=== PATIENT | male | born 1985 | race Caucasian/White ===

== ENCOUNTER 2017-04-20 20:42 | Emergency (ER) | payer OTHER ==
[2017-04-20 20:46] VITALS: BP 165/90; PULSE 77; RESP 18; TEMP 98.8
[2017-04-20] MEDS ORDERED: BUPIVACAINE (PF) 0.5% 30 ML VIAL MISCELLANE STA (21:13)
--- NOTE | 2017-04-20 21:20 | ED ---
ENT HPI - General Chief complaint: Dental/Oral Stated complaint: Dental Pain Time Seen by Provider: 04/20/17 20:50 Source: patient, RN notes reviewed Mode of arrival: ambulatory Limitations: no limitations - History of Present Illness Initial comments: Patient is a 31-year-old male presents to the emergency room for evaluation of dental pain. Patient states that he has been having pain in his right lower tooth for the past 24 hours. Patient states he thinks it is his wisdom tooth. Patient denies any facial swelling, fevers or chills. Patient states the pain radiates into his right ear. Patient denies trouble swallowing or swelling of the throat. Patient states he's been taking ibuprofen with no relief of symptoms. Patient states he is not be able to get an appointment with his dentist yet. Patient requesting dental block. - Related Data Previous Rx's Medication Instructions Recorded Acetaminophen with Codeine 1 tab PO Q4H PRN #12 tab 04/20/17 [Tylenol w/codeine #3] Clindamycin [Cleocin] 300 mg PO Q6H 10 Days 04/20/17 Allergies Allergy/AdvReac Type Severity Reaction Status Date / Time amoxicillin Allergy Rash/Hives Verified 04/20/17 20:46 Review of Systems ROS Statement: Those systems with pertinent positive or pertinent negative responses have been documented in the HPI. ROS Other: All systems not noted in ROS Statement are negative. Past Medical History Past Medical History: No Reported History History of Any Multi-Drug Resistant Organisms: None Reported Past Surgical History: Orthopedic Surgery Past Psychological History: No Psychological Hx Reported Smoking Status: Never smoker Past Alcohol Use History: None Reported Past Drug Use History: None Reported General Exam - General Exam Comments Initial Comments: laying in exam room, no acute distress. Limitations: no limitations General appearance: alert, in no apparent distress Head exam: Present: atraumatic, normocephalic, normal inspection Eye exam: Present: normal appearance Expanded Mouth exam: Present: normal external inspection Teeth exam: Present: dental caries (multiple), dental tenderness # (eroded tooth #32) Throat exam: normal inspection Neck exam: Present: normal inspection Respiratory exam: Absent: respiratory distress Extremities exam: Present: normal inspection Back exam: Present: normal inspection Neurological exam: Present: alert, oriented X3, CN II-XII intact, normal gait Psychiatric exam: Present: normal affect, normal mood Skin exam: Present: warm, dry, intact, normal color. Absent: rash Course Vital Signs 04/20/17 20:43 Temperature 98.8 F Pulse Rate 77 Respiratory 18 Rate Blood Pressure 165/90 O2 Sat by Pulse 98 Oximetry Procedures - Nerve Block Consent Obtained: verbal consent Local Anesthetic Used: Marcaine 0.5% Amount of anesthesia used: 2 Side: right Intraoral Nerve Block: inferior alveolar Procedure Successful: Yes Complications: none Patient Tolerated Procedure: well, no complications Medical Decision Making - Medical Decision Making Patient is a 31-year-old male presents to the emergency room for evaluation of dental pain. Patient requesting dental block. Right inferior alveolar dental block successful. Patient placed on antibiotics and pain medications and advised follow up with dentist. Patient states he understands everything that was discussed with him. Return parameters discussed. Disposition Clinical Impression: Pain, dental Disposition: HOME SELF-CARE Condition: Good Instructions: Toothache (ED) Additional Instructions: Please follow up with a dentist. If you do not have a dentist, you may contact [facility]. Phone number is [phone] for existing clients. For new clients you may call [phone]. Another option is you have is the [facility]. Phone number is [phone]. Medications as directed. [place] gargles. Cold fluids can sometimes help with pain as well. Return to the Emergency Room for any worsening or changing symptoms. Use cold compresses to the outside of the face. Prescriptions: Acetaminophen with Codeine [Tylenol w/codeine #3] 1 tab PO Q4H PRN #12 tab PRN Reason: Pain Clindamycin [Cleocin] 300 mg PO Q6H 10 Days Referrals: Jeison Lynn MD [Primary Care Provider] - 1-2 days Time of Disposition: 21:16
== END 2017-04-20 21:31 | disposition home or self-care (01) ==
LOC: EC 20:42
DX: K08.89 Other specified disorders of teeth and supporting structures (principal); K02.9 Dental caries, unspecified; H92.01 Otalgia, right ear; Z88.0 Allergy status to penicillin
CPT/HCPCS: 64400; 99282

== ENCOUNTER → 2022-04-22 | Outpatient (CLI) | payer OTHER | END | disposition home or self-care (01) | LOC: RADXRMAIN 14:41 | PROVIDERS: ATTEND Nurse Practitioner Family | DX: Z53.9 Procedure and treatment not carried out, unspecified reason (principal) ==

== ENCOUNTER → 2022-04-23 | Outpatient (CLI) | payer OTHER ==
--- NOTE | 2022-04-23 12:08 | XR ---
EXAMINATION TYPE: XR Hip Bilateral Complete DATE OF EXAM: 04/23/2022 CLINICAL HISTORY: pain TECHNIQUE: AP and frogleg views of the bilateral hips are obtained. COMPARISON: None. FINDINGS: There is no acute fracture/dislocation evident. The joint space appears mildly narrowed bilaterally. The overlying soft tissue appears unremarkable. IMPRESSION: 1. There is no acute fracture or dislocation. ICD 10 NO FRACTURE, INITIAL EVALUATION
== END | disposition home or self-care (01) ==
LOC: RADXRMAIN 11:33
PROVIDERS: ATTEND Nurse Practitioner Family
DX: M25.552 Pain in left hip (principal)
CPT/HCPCS: 73521